=== PATIENT | male | born 1960 | race Caucasian/White ===

== ENCOUNTER 2023-08-19 19:46 | Emergency (ER) | payer MEDICAID, OTHER ==
[~2023-08-19] VITALS: Ht 188 cm; Wt 97.5 kg
[2023-08-19 19:51] VITALS: BP_SYST 214; PULSE 87; RESP 20; TEMP 97.2; O2SAT 97
[2023-08-19] MEDS: KETOROLAC TROMETHAMINE 30 MG VIAL IM ONE (20:41)
[2023-08-19] MEDS: ACETAMINOPHEN 500 MG TABLET PO ONE (20:41)
[2023-08-19] MEDS ORDERED: cloNIDine HCL 0.1 MG TABLET ONE (20:47)
[2023-08-19] MEDS: cloNIDine HCL 0.1 MG TABLET PO ONE (20:47)
[2023-08-19 21:42] LABS: BARBITURATE, URINE NEGATIVE (NEG <=200); BENZODIAZEPINE, URINE POSITIVE (NEG <=150); CANNABINOID, URINE NEGATIVE (NEG <=50); COCAINE, URINE NEGATIVE (NEG <=150); METHAMPHETAMINES SCREEN,URINE POSITIVE (NEG <=500); OPIATE, URINE NEGATIVE (NEG <=100); PHENCYCLIDINE SCREEN,URINE NEGATIVE (NEG <=25); URINE AMPHETAMINE POSITIVE (NEG <=500); URINE METHADONE NEGATIVE (NEG <=200); URINE OXYCODONE SCREEN NEGATIVE (NEG <=100)
[2023-08-19 21:43] LABS: UR TRICYCLIC ANTIDEPRESSANTS NEGATIVE (NEG <=300)
[2023-08-19] MEDS ORDERED: BACITRACIN 1 GM OINT TP ONE (22:09)
[2023-08-19] MEDS ORDERED: NEOM28.36 TP (22:12)
[2023-08-19] MEDS: LIDOCAINE/EPI 1% 1:100000 20 ML VIAL INJ ONE (22:54)
[2023-08-19 23:23] VITALS: BP_SYST 150; PULSE 89; RESP 18; TEMP 98.2; O2SAT 99
== END 2023-08-19 23:23 | disposition home or self-care (01) ==
LOC: SED 19:46
DX: S01.01XA Laceration without foreign body of scalp, initial encounter (principal); F17.200 Nicotine dependence, unspecified, uncomplicated; I10 Essential (primary) hypertension; W20.8XXA Other cause of strike by thrown, projected or falling object, initial encounter; Y93.89 Activity, other specified; Y92.89 Other specified places as the place of occurrence of the external cause; Y99.8 Other external cause status
CPT/HCPCS: 99285; 70450; 80307; 96372; 12004; 93005; J1885